=== PATIENT | male | born 1970 | race Two or more races ===

== ENCOUNTER 2023-06-16 15:45 | Emergency (ER) | payer SELFPAY ==
[~2023-06-16] VITALS: Ht 172.7 cm; Wt 109.5 kg
[2023-06-16 15:53] VITALS: BP 154/95; PULSE 94; RESP 18; O2SAT 95
[2023-06-16] MEDS ORDERED: HYDROcodone-ACET 5/325MG TAB PO ONE (17:00)
[2023-06-16] MEDS ORDERED: NABU-72 PO ×3 (19:09→20:52)
[2023-06-16] MEDS ORDERED: AUG875T PO ×3 (19:09→20:52)
== END 2023-06-16 23:47 | disposition home or self-care (01) ==
LOC: ER 15:45
DX: J01.00 Acute maxillary sinusitis, unspecified (principal); R51.9 Headache, unspecified; M54.2 Cervicalgia; Z79.899 Other long term (current) drug therapy
CPT/HCPCS: 70450; 72125